=== PATIENT | female | born 1975 | race Caucasian/White ===

== ENCOUNTER → 2019-06-15 | Outpatient (CLI) | payer OTHER ==
[~2019-06-15] MED LIST: BIRTH CONTROL PILL PO; FISH OIL 1,001000 M2 PO; LEVOTHYROXIN0.088 MG PO; METROGEL TOP; NORCO 5-325 TA1 EACH PO; WOMEN'S DAILY1 EAC1 PO
== END ==
LOC: CAT 09:52
DX: Z13.6 Encounter for screening for cardiovascular disorders (principal); E78.00 Pure hypercholesterolemia, unspecified; I25.10 Atherosclerotic heart disease of native coronary artery without angina pectoris